=== PATIENT | female | born 1970 | race African-American/Black ===

== ENCOUNTER 2018-01-20 05:08 | Inpatient (IN) | payer OTHER ==
[2018-01-12 14:34] VITALS: BMI 24.4
[2018-01-20] MEDS ORDERED: VASOPRESSIN 20 UNITS/ML VIAL IV ONE (07:34)
[2018-01-20] MEDS ORDERED: ROPIVACAINE HCL 0.5% 30ML VIAL ONE (07:36)
[2018-01-20] MEDS ORDERED: DEXAMETHASONE SOD PHOSPHATE/PF 10 MG/ML SDV ONE (07:36)
[2018-01-20] MEDS ORDERED: MIDAZOLAM HCL 2 MG/2 ML SINGLE DOSE VIAL ONE ×2 (07:37)
--- NOTE | 2018-01-20 07:43 | HP ---
History & Physical Update - History History: No Change - Physical Physical: No Change - Assessment Assessment: No Change - Plan Plan: No Change (No change in HP from 01/12/18)
--- NOTE | 2018-01-20 07:51 | OP ---
Operative Note - Note: Operative Date: 01/20/18 Pre-Operative Diagnosis: Leiomyomatous uterus. menorrhagia. submucosal myoma. intramural myoma Operation: Abdominal myomectomy Post-Operative Diagnosis: Same as Pre-op Surgeon: Randa Rodriguez Chicken Catcher: Pascual Meyer Anesthesia: General Estimated Blood Loss (mls): 200 Operative Report Dictated: Yes
[2018-01-20] MEDS ORDERED: LIDOCAINE HCL/PF 2% SDV 5ML VIAL ONE (07:54)
[2018-01-20] MEDS ORDERED: ceFAZolin SODIUM 1 GM VIAL ONE (07:54)
[2018-01-20] MEDS ORDERED: DEXAMETHASONE SOD PHOSPHATE 4 MG/1 ML VIAL ONE (07:54)
[2018-01-20] MEDS ORDERED: PROPOFOL 20 ML ONE (07:55)
[2018-01-20] MEDS ORDERED: ROCURONIUM BROMIDE 50 MG/5 ML VIAL ONE (07:56)
[2018-01-20] MEDS ORDERED: ceFAZolin SODIUM 1 GM VIAL IVPB ONE (08:01)
[2018-01-20] MEDS ORDERED: PROMETHAZINE HCL 25 MG/1 ML VIAL IVPB PRN (08:47)
[2018-01-20] MEDS ORDERED: DEXAMETHASONE SOD PHOSPHATE 4 MG/1 ML VIAL IVPUSH PRN (08:47)
[2018-01-20] MEDS ORDERED: NEOSTIGMINE METHYLSULFATE 0.5 MG/ML - 10 ML MDV ONE (08:50)
[2018-01-20] MEDS ORDERED: GLYCOPYRROLATE 0.2 MG/1 ML VIAL ONE (08:51)
[2018-01-20] MEDS ORDERED: HYDROmorphone *PCA* 10MG/50ML DISP.SYRIN PCA ONE (10:16)
[2018-01-20] MEDS: HYDROmorphone *PCA* 10MG/50ML DISP.SYRIN PCA SCH ×2 (10:30→13:25)
[2018-01-20] MEDS ORDERED: PROMETHAZINE HCL 25 MG/1 ML VIAL ONE (11:28)
[2018-01-20] MEDS: LACTATED RINGERS SOLUTION 1,000 ML/1,000 ML INFUS.BAG IV SCH ×2 (13:25→20:35)
[2018-01-20 18:37] LABS: HEMATOCRIT 28.2 % (32.4-45.2); HEMOGLOBIN 8.9 GM/dL (10.7-15.3); LYMPH % 1.4 % (8-40); MCH 27.2 pg (25.7-33.7); MCHC 31.7 g/dl (32.0-36.0); MEAN CELL VOLUME 85.9 fl (80-96); MEAN PLT VOLUME 9.2 fl (7.5-11.1); MONO % 4.8 % (3.8-10.2); NEUT % 93.8 % (42.8-82.8); PLATELET COUNT 213 K/MM3 (134-434); RBC 3.28 M/mm3 (3.60-5.2); RDW 13.4 % (11.6-15.6); WHITE BLOOD COUNT 13.7 K/mm3 (4.0-10.0)
[2018-01-21 08:06] LABS: BASO % 0.1 % (0-2.0); EOS % 0.1 % (0-4.5); HEMATOCRIT 23.4 % (32.4-45.2); HEMOGLOBIN 7.8 GM/dL (10.7-15.3); LYMPH % 7.4 % (8-40); MCH 28.3 pg (25.7-33.7); MCHC 33.2 g/dl (32.0-36.0); MEAN CELL VOLUME 85.3 fl (80-96); MEAN PLT VOLUME 8.9 fl (7.5-11.1); MONO % 7.9 % (3.8-10.2); NEUT % 84.5 % (42.8-82.8); PLATELET COUNT 171 K/MM3 (134-434); RBC 2.74 M/mm3 (3.60-5.2); RDW 12.9 % (11.6-15.6); WHITE BLOOD COUNT 11.3 K/mm3 (4.0-10.0)
[2018-01-21] MEDS: LACTATED RINGERS SOLUTION 1,000 ML/1,000 ML INFUS.BAG IV SCH ×2 (08:07→13:41)
--- NOTE | 2018-01-21 08:40 | PN ---
Progress Note (short form) - Note Progress Note: Anesthesia postop note and pain management follow up 47 y/o F s/p GA for abdominal myomectomy, dilaudid tariff supervisor for postop pain management. POD#1, vss, aaox3, pain well controlled with tariff supervisor., no complaints. Will d/c tariff supervisor later today when patient able to tolerate po meds. No anesthesia complications.
[2018-01-21] MEDS: ENOXAPARIN NA (PORCINE) 40 MG/0.4 ML DISP.SYRIN SQ SCH (10:05)
[2018-01-21] MEDS: HYDROmorphone *PCA* 10MG/50ML DISP.SYRIN PCA SCH (10:05)
[2018-01-21] MEDS: oxyCODONE HCL 5 MG TABLET PO PRN ×3 (11:08→20:28)
--- NOTE | 2018-01-21 15:48 | PN ---
Progress Note (SOAP) - Subjective Chief Complaint: Pt with mild pain doing well no flatus no dizziness - Current Medications Current Medications: Active Medications Acetaminophen (Tylenol -) 650 mg PO Q4H PRN PRN Reason: FEVER Bisacodyl (Dulcolax Suppository -) 10 mg [place] DAILY PRN PRN Reason: CONSTIPATION Dexamethasone Sodium Phosphate (Decadron Injection -) 4 mg IVPUSH ONCE PRN PRN Reason: NAUSEA AND/OR VOMITING Diphenhydramine HCl (Benadryl Injection -) 12.5 mg IVPUSH ONCE PRN PRN Reason: FOR ITCHING Enoxaparin Sodium (Lovenox -) 40 mg SQ DAILY [facility] Last Admin: 01/21/18 10:05 Dose: 40 mg Fentanyl (Sublimaze Injection -) 50 mcg IVPUSH [id number] PRN PRN Reason: PAIN-PACU ORDER X 4 DOSES ONLY Last Admin: 01/20/18 10:45 Dose: 50 mcg Hydromorphone HCl (Dilaudid Outside Medical Sales Representative -) 10 mg CROP ADJUSTER CROP ADJUSTER [facility] PRN Reason: Protocol Stop: 01/27/18 08:47 Last Admin: 01/21/18 10:05 Dose: Not Given Lactated Ringer's (Lactated Ringers Solution) 1,000 ml in 1,000 mls @ 125 mls/ hr IV ASDIR [facility] Last Admin: 01/21/18 13:41 Dose: 125 mls/hr Ondansetron HCl (Zofran Injection) 4 mg IVPUSH Q4H PRN PRN Reason: NAUSEA AND/OR VOMITING Oxycodone HCl (Roxicodone -) 5 mg PO Q4H PRN PRN Reason: PAIN LEVEL 4 - 6 Last Admin: 01/21/18 11:08 Dose: 5 mg Oxycodone HCl (Roxicodone -) 10 mg PO Q4H PRN PRN Reason: PAIN LEVEL 7 - 10 Last Admin: 01/21/18 14:52 Dose: 10 mg Promethazine HCl (Phenergan Injection -) 12.5 mg IVPB Q6H PRN PRN Reason: NAUSEA AND/OR VOMITING Last Admin: 01/20/18 11:30 Dose: 6.25 mg Simethicone (Mylicon -) 80 mg PO Q4H PRN PRN Reason: GAS - Objective Vital Signs: Vital Signs Temperature 99.3 F 05/18/18 14:53 Pulse Rate 85 01/21/18 14:53 Respiratory Rate 18 01/21/18 14:53 Blood Pressure 137/75 01/21/18 14:53 O2 Sat by Pulse Oximetry (%) 100 01/21/18 09:00 Constitutional: Yes: Well Nourished, No Distress Neck: Yes: WNL Gastrointestinal: Yes: WNL, Soft ....Post : Yes: Uterus firm, Uterus non-tender Extremities: Yes: WNL Edema: No Wound/Incision: Yes: Clean/Dry, Well Approximated Neurological: Yes: WNL, Alert, Oriented Labs Lab Results: CBC, BMP 01/21/18 07:35 Problem List - Problems (1) H/O myomectomy Code(s): Z98.890 - OTHER SPECIFIED POSTPROCEDURAL STATES Assessment/Plan POD 1 stable anemia Plan DC home in am if passing flatus rto 1 week Ferrous sulfate BID
[2018-01-22] MEDS: LACTATED RINGERS SOLUTION 1,000 ML/1,000 ML INFUS.BAG IV SCH ×5 (01:19→21:51)
[2018-01-22] MEDS: oxyCODONE HCL 5 MG TABLET PO PRN ×3 (08:54→19:56)
[2018-01-22] MEDS: FERROUS SO4 325 MG TABLET (FP) PO SCH ×3 (08:55→21:50)
[2018-01-22] MEDS: ENOXAPARIN NA (PORCINE) 40 MG/0.4 ML DISP.SYRIN SQ SCH (09:00)
--- NOTE | 2018-01-22 10:16 | DS ---
Physical Exam-MAINTENANCE WORKER Vital Signs: Vital Signs Temperature 98.7 F 01/22/18 05:00 Pulse Rate 96 H 01/22/18 05:00 Respiratory Rate 20 01/22/18 05:00 Blood Pressure 107/61 01/22/18 05:00 O2 Sat by Pulse Oximetry (%) 100 01/21/18 20:36 Constitutional: Yes: Well Nourished, No Distress Neck: Yes: WNL Gastrointestinal: Yes: WNL, Soft Labs: CBC, BMP 01/21/18 07:35 Discharge Summary Reason For Visit: LEIOMYOMATOSIS UTERUS Current Active Problems H/O myomectomy (Acute) Procedures: Principal: Abdominal myomectomy Condition: Good - Instructions Diet, Activity, Other Instructions: Dr. Randa Rodriguez Cutting Machine Operator Helper discharge instructions Physical activity Resume your normal everyday activity as tolerated no heavy lifting or exercise until seen by your surgeon. You may walk unlimited j carlos of and climb stairs. You may resume driving the car when you feel safe and comfortable behind the wheel. No sexual activity as instructed by Dr. Rodriguez. Wound care If you have a bandage, leave it on, and keep dry for 48-72 hours. After that time discard the outer bandage. If they are tapes on the skin under the out of bandage leave them in place. They will peel off in the next 7 to 10 days. Do Not Peel them off. You may shower the day after surgery. If there are tapes present on the skin, you may shower over them. Diet There are no dietary restrictions. Eat healthy, high-fiber foods. Drink 6 to 8 glasses of liquid each day. This will assist in keeping your bowels are regular. Pain management You may take Tylenol or acetaminophen or Ibuprofen (for example, Motrin, Advil etc.) from my pain prescription medication is ordered should be taken as prescribed for moderate to severe pain. Call Dr. Rodriguez for any of the following: Severe pain not relieved by medication Fever of 101 or higher Excessive bleeding or drainage on dressing Inability to urinate Call the office at [phone] for an appointment in seven days. Disposition: HOME - Home Medications Comprehensive Discharge Medication List: Ambulatory Orders Iron 25 mg PO BID 01/12/18 Pamprin 1 tab PRN PRN 01/20/18 Oxycodone HCl/Acetaminophen [Percocet 5-325 mg Tablet] 1 - 2 tab PO Q4H #20 tablet MDD 6 01/22/18
[2018-01-22] MEDS: ACETAMINOPHEN 325 MG TABLET (FP) PO PRN (20:04)
--- NOTE | 2018-01-22 22:00 | PN ---
Progress Note (SOAP) - Subjective Chief Complaint: Pt with gas pain no flatus unable to go home - Current Medications Current Medications: Active Medications Acetaminophen (Tylenol -) 650 mg PO Q4H PRN PRN Reason: FEVER Last Admin: 01/22/18 20:04 Dose: 650 mg Bisacodyl (Dulcolax Suppository -) 10 mg [place] DAILY PRN PRN Reason: CONSTIPATION Dexamethasone Sodium Phosphate (Decadron Injection -) 4 mg IVPUSH ONCE PRN PRN Reason: NAUSEA AND/OR VOMITING Diphenhydramine HCl (Benadryl Injection -) 12.5 mg IVPUSH ONCE PRN PRN Reason: FOR ITCHING Docusate Sodium (Colace -) 100 mg PO BID PRN PRN Reason: CONSTIPATION Enoxaparin Sodium (Lovenox -) 40 mg SQ DAILY [facility] Last Admin: 01/22/18 09:00 Dose: 40 mg Fentanyl (Sublimaze Injection -) 50 mcg IVPUSH [id number] PRN PRN Reason: PAIN-PACU ORDER X 4 DOSES ONLY Last Admin: 01/20/18 10:45 Dose: 50 mcg Ferrous Sulfate (Feosol -) 325 mg PO BID [facility] Last Admin: 01/22/18 21:50 Dose: 325 mg Lactated Ringer's (Lactated Ringers Solution) 1,000 ml in 1,000 mls @ 125 mls/ hr IV ASDIR [facility] Last Admin: 01/22/18 21:51 Dose: 125 mls/hr Ondansetron HCl (Zofran Injection) 4 mg IVPUSH Q4H PRN PRN Reason: NAUSEA AND/OR VOMITING Oxycodone HCl (Roxicodone -) 5 mg PO Q4H PRN PRN Reason: PAIN LEVEL 4 - 6 Last Admin: 01/22/18 19:56 Dose: 5 mg Oxycodone HCl (Roxicodone -) 10 mg PO Q4H PRN PRN Reason: PAIN LEVEL 7 - 10 Last Admin: 01/22/18 15:53 Dose: 10 mg Promethazine HCl (Phenergan Injection -) 12.5 mg IVPB Q6H PRN PRN Reason: NAUSEA AND/OR VOMITING Last Admin: 01/20/18 11:30 Dose: 6.25 mg Simethicone (Mylicon -) 80 mg PO Q4H PRN PRN Reason: GAS - Objective Vital Signs: Vital Signs Temperature 98.9 F 01/22/18 14:15 Pulse Rate 89 01/22/18 14:15 Respiratory Rate 18 01/22/18 14:15 Blood Pressure 130/75 01/22/18 14:15 O2 Sat by Pulse Oximetry (%) 100 01/22/18 09:00 Constitutional: Yes: Well Nourished, No Distress Cardiovascular: Yes: WNL Respiratory: Yes: WNL Gastrointestinal: Yes: WNL, Soft, Distention Musculoskeletal: Yes: WNL Extremities: Yes: WNL Wound/Incision: Yes: Steri Strips, Open to air Neurological: Yes: WNL, Alert, Oriented Labs Lab Results: CBC, BMP 01/21/18 07:35 Problem List - Problems (1) H/O myomectomy Code(s): Z98.890 - OTHER SPECIFIED POSTPROCEDURAL STATES Assessment/Plan POD 2 no flatus stable anemia Plan DC home in am if passing flatus in am rto 1 week Ferrous sulfate BID
[2018-01-22 22:46] LABS: BASO % 0.1 % (0-2.0); EOS % 0.2 % (0-4.5); LYMPH % 5.1 % (8-40); MCH 27.6 pg (25.7-33.7); MCHC 32.3 g/dl (32.0-36.0); MEAN CELL VOLUME 85.3 fl (80-96); MEAN PLT VOLUME 9.1 fl (7.5-11.1); MONO % 4.6 % (3.8-10.2); PLATELET COUNT 200 K/MM3 (134-434); RBC 2.39 M/mm3 (3.60-5.2); RDW 12.9 % (11.6-15.6); WHITE BLOOD COUNT 11.8 K/mm3 (4.0-10.0)
[2018-01-22 22:49] LABS: HEMATOCRIT 20.4 % (32.4-45.2); HEMOGLOBIN 6.6 GM/dL (10.7-15.3)
--- NOTE | 2018-01-22 23:07 | PN ---
Progress Note (short form) - Note Progress Note: CBC WBC 11.8 K/mm3 (4.0-10.0) H 01/22/18 22:30 RBC 2.39 M/mm3 (3.60-5.2) L 01/22/18 22:30 Hgb 6.6 GM/dL (10.7-15.3) L* D 01/22/18 22:30 Hct 20.4 % (32.4-45.2) L 01/22/18 22:30 MCV 85.3 fl (80-96) 01/22/18 22:30 MCH 27.6 pg (25.7-33.7) 01/22/18 22:30 MCHC 32.3 g/dl (32.0-36.0) 01/22/18 22:30 RDW 12.9 % (11.6-15.6) 01/22/18 22:30 Plt Count 200 K/MM3 (134-434) 01/22/18 22:30 MPV 9.1 fl (7.5-11.1) 01/22/18 22:30 Neutrophils % 90.0 % (42.8-82.8) H 01/22/18 22:30 Lymphocytes % 5.1 % (8-40) L D 01/22/18 22:30 Monocytes % 4.6 % (3.8-10.2) 01/22/18 22:30 Eosinophils % 0.2 % (0-4.5) D 01/22/18 22:30 Basophils % 0.1 % (0-2.0) 01/22/18 22:30 Called by nurse to inform of H/H VSS low grade temp will start iv ancef cbc in am Ferrous sulfate BID Consider transfusion if vitals not stable or if goes lower and is afebrile Problem List - Problems (1) H/O myomectomy Code(s): Z98.890 - OTHER SPECIFIED POSTPROCEDURAL STATES
[2018-01-23] MEDS: ONDANSETRON 4 MG/2 ML VIAL IVPUSH PRN ×2 (00:23→21:45)
[2018-01-23] MEDS: oxyCODONE HCL 5 MG TABLET PO PRN ×3 (00:36→21:53)
[2018-01-23] MEDS ORDERED: ceFAZolin SODIUM 1 GM VIAL ONE ×3 (00:57→17:12)
[2018-01-23] MEDS ORDERED: DEXTROSE 5%-WATER - 50 ML IVPB ONE ×3 (00:58→17:13)
[2018-01-23] MEDS: CEFAZOLIN 1 GM in DEXTROSE 5%-WATER - 50 ML IVPB SCH ×3 (01:20→17:15)
[2018-01-23 08:52] LABS: BASO % 0.2 % (0-2.0); EOS % 1.6 % (0-4.5); HEMATOCRIT 19.8 % (32.4-45.2); LYMPH % 7.3 % (8-40); MCH 27.6 pg (25.7-33.7); MCHC 32.5 g/dl (32.0-36.0); MEAN CELL VOLUME 85.2 fl (80-96); MEAN PLT VOLUME 9.7 fl (7.5-11.1); MONO % 7.7 % (3.8-10.2); NEUT % 83.2 % (42.8-82.8); PLATELET COUNT 224 K/MM3 (134-434); RBC 2.32 M/mm3 (3.60-5.2); WHITE BLOOD COUNT 9.6 K/mm3 (4.0-10.0)
[2018-01-23 09:00] LABS: HEMOGLOBIN 6.4 GM/dL (10.7-15.3)
--- NOTE | 2018-01-23 10:05 | PN ---
Progress Note (SOAP) - Subjective Chief Complaint: Pt not passing gas no flatus SOB HCT 19% - Current Medications Current Medications: Active Medications Acetaminophen (Tylenol -) 650 mg PO Q4H PRN PRN Reason: FEVER Last Admin: 01/22/18 20:04 Dose: 650 mg Bisacodyl (Dulcolax Suppository -) 10 mg [place] DAILY PRN PRN Reason: CONSTIPATION Dexamethasone Sodium Phosphate (Decadron Injection -) 4 mg IVPUSH ONCE PRN PRN Reason: NAUSEA AND/OR VOMITING Diphenhydramine HCl (Benadryl Injection -) 12.5 mg IVPUSH ONCE PRN PRN Reason: FOR ITCHING Docusate Sodium (Colace -) 100 mg PO BID PRN PRN Reason: CONSTIPATION Enoxaparin Sodium (Lovenox -) 40 mg SQ DAILY [facility] Last Admin: 01/22/18 09:00 Dose: 40 mg Fentanyl (Sublimaze Injection -) 50 mcg IVPUSH [id number] PRN PRN Reason: PAIN-PACU ORDER X 4 DOSES ONLY Last Admin: 01/20/18 10:45 Dose: 50 mcg Ferrous Sulfate (Feosol -) 325 mg PO BID [facility] Last Admin: 01/22/18 21:50 Dose: 325 mg Lactated Ringer's (Lactated Ringers Solution) 1,000 ml in 1,000 mls @ 125 mls/ hr IV ASDIR [facility] Last Admin: 01/22/18 21:51 Dose: 125 mls/hr Cefazolin Sodium 1 gm/ (Dextrose) 50 mls @ 100 mls/hr IVPB Q8H-IV TANIKA Stop: 01/24/18 01:59 Last Admin: 01/23/18 01:20 Dose: 100 mls/hr Ondansetron HCl (Zofran Injection) 4 mg IVPUSH Q4H PRN PRN Reason: NAUSEA AND/OR VOMITING Last Admin: 01/23/18 00:23 Dose: 4 mg Oxycodone HCl (Roxicodone -) 5 mg PO Q4H PRN PRN Reason: PAIN LEVEL 4 - 6 Last Admin: 01/22/18 19:56 Dose: 5 mg Oxycodone HCl (Roxicodone -) 10 mg PO Q4H PRN PRN Reason: PAIN LEVEL 7 - 10 Last Admin: 01/23/18 00:36 Dose: 10 mg Promethazine HCl (Phenergan Injection -) 12.5 mg IVPB Q6H PRN PRN Reason: NAUSEA AND/OR VOMITING Last Admin: 01/20/18 11:30 Dose: 6.25 mg Simethicone (Mylicon -) 80 mg PO Q4H PRN PRN Reason: GAS - Objective Vital Signs: Vital Signs Temperature 98.6 F 01/23/18 06:00 Pulse Rate 82 01/23/18 06:00 Respiratory Rate 18 01/23/18 06:00 Blood Pressure 122/69 01/23/18 06:00 O2 Sat by Pulse Oximetry (%) 97 01/22/18 21:00 Gastrointestinal: Yes: WNL, Soft, Distention Musculoskeletal: Yes: WNL Extremities: Yes: WNL Wound/Incision: Yes: Clean/Dry, Steri Strips, Open to air Neurological: Yes: WNL, Alert, Oriented Labs Lab Results: CBC, BMP 01/23/18 07:30 Problem List - Problems (1) H/O myomectomy Code(s): Z98.890 - OTHER SPECIFIED POSTPROCEDURAL STATES Assessment/Plan POD 3 no flatus dyspnea anemia Plan Transfusion x 2 units CBC
[2018-01-23] MEDS: LACTATED RINGERS SOLUTION 1,000 ML/1,000 ML INFUS.BAG IV SCH ×2 (10:09→21:46)
[2018-01-23] MEDS: ENOXAPARIN NA (PORCINE) 40 MG/0.4 ML DISP.SYRIN SQ SCH (10:10)
[2018-01-23] MEDS: FERROUS SO4 325 MG TABLET (FP) PO SCH ×2 (10:10→21:45)
[2018-01-23] MEDS: BISACODYL 10 MG SUPP.RECT PR PRN (10:10)
[2018-01-23] MEDS: DOCUSATE SODIUM 100 MG CAPSULE (FP) PO PRN ×2 (10:10→21:45)
[2018-01-24] MEDS: oxyCODONE HCL 5 MG TABLET PO PRN (05:45)
[2018-01-24 09:01] LABS: BASO % 0.3 % (0-2.0); HEMATOCRIT 27.7 % (32.4-45.2); HEMOGLOBIN 9.4 GM/dL (10.7-15.3); LYMPH % 7.3 % (8-40); MCH 29.1 pg (25.7-33.7); MEAN CELL VOLUME 85.6 fl (80-96); MEAN PLT VOLUME 8.6 fl (7.5-11.1); MONO % 8.2 % (3.8-10.2); NEUT % 82.2 % (42.8-82.8); PLATELET COUNT 235 K/MM3 (134-434); RBC 3.23 M/mm3 (3.60-5.2); RDW 13.3 % (11.6-15.6); WHITE BLOOD COUNT 8.8 K/mm3 (4.0-10.0)
[2018-01-24] MEDS: FERROUS SO4 325 MG TABLET (FP) PO SCH ×2 (09:38→22:25)
[2018-01-24] MEDS: ENOXAPARIN NA (PORCINE) 40 MG/0.4 ML DISP.SYRIN SQ SCH (09:38)
[2018-01-24] MEDS: ONDANSETRON 4 MG/2 ML VIAL IVPUSH PRN (09:39)
[2018-01-24] MEDS: SIMETHICONE 80 MG TAB.CHEW (FP) PO PRN ×2 (09:51→20:14)
[2018-01-24] MEDS: ACETAMINOPHEN 325 MG TABLET (FP) PO PRN ×2 (09:51→20:09)
[2018-01-24] MEDS: LACTATED RINGERS SOLUTION 1,000 ML/1,000 ML INFUS.BAG IV SCH ×2 (11:14→15:46)
--- NOTE | 2018-01-24 12:40 | PATH ---
Surgical Pathology Report Patient Name: DEISY VELA Med. Rec. #: [id number] /Age/Gender: 1970 (Age: 47) / F Account: [id number] Location: [facility] MED/SURG Taken: 01/20/2018 Received: 01/20/2018 Reported: 01/24/2018 Physicians: Randa Rodriguez M.D. Specimen(s) Received FIBROID OF UTERUS Clinical History Leiomyomatous uterus Final Diagnosis UTERUS, FIBROIDS, EXCISION: LEIOMYOMA, MULTIPLE. Electronically Signed Elvis Caceres M.D. Gross Description Received in formalin labeled "fibroids of uterus," is a 349 g aggregate of 22 rubbery nodules, consistent with fibroids. The fibroids range from 1.3-7.5 cm in greatest dimension. Sectioning reveals homogeneous hooks, smooth parenchyma with whorled architecture. No areas of hemorrhage or necrosis are identified. Medication Assistant sections are submitted in 8 cassettes. /01/20/2018 saudi/01/20/2018
[2018-01-24] MEDS: DOCUSATE SODIUM 100 MG CAPSULE (FP) PO PRN (22:30)
[2018-01-24] MEDS ORDERED: oxyCODONE HCL 5 MG TABLET PO PRN (22:40)
[2018-01-25] MEDS: LACTATED RINGERS SOLUTION 1,000 ML/1,000 ML INFUS.BAG IV SCH ×2 (00:36→09:39)
--- NOTE | 2018-01-25 01:01 | PN ---
Progress Note (SOAP) - Subjective Chief Complaint: Pt was passing gas small amout of gas but with abd pain Pt was seen this morn - Current Medications Current Medications: Active Medications Acetaminophen (Tylenol -) 650 mg PO Q4H PRN PRN Reason: FEVER Last Admin: 01/24/18 20:09 Dose: 650 mg Bisacodyl (Dulcolax Suppository -) 10 mg [place] DAILY PRN PRN Reason: CONSTIPATION Last Admin: 01/23/18 10:10 Dose: 10 mg Dexamethasone Sodium Phosphate (Decadron Injection -) 4 mg IVPUSH ONCE PRN PRN Reason: NAUSEA AND/OR VOMITING Diphenhydramine HCl (Benadryl Injection -) 12.5 mg IVPUSH ONCE PRN PRN Reason: FOR ITCHING Docusate Sodium (Colace -) 100 mg PO BID PRN PRN Reason: CONSTIPATION Last Admin: 01/24/18 22:30 Dose: 100 mg Enoxaparin Sodium (Lovenox -) 40 mg SQ DAILY [facility] Last Admin: 01/24/18 09:38 Dose: 40 mg Fentanyl (Sublimaze Injection -) 50 mcg IVPUSH [id number] PRN PRN Reason: PAIN-PACU ORDER X 4 DOSES ONLY Last Admin: 01/20/18 10:45 Dose: 50 mcg Ferrous Sulfate (Feosol -) 325 mg PO BID [facility] Last Admin: 01/24/18 22:25 Dose: 325 mg Lactated Ringer's (Lactated Ringers Solution) 1,000 ml in 1,000 mls @ 125 mls/ hr IV ASDIR [facility] Last Admin: 01/25/18 00:36 Dose: 125 mls/hr Ondansetron HCl (Zofran Injection) 4 mg IVPUSH Q4H PRN PRN Reason: NAUSEA AND/OR VOMITING Last Admin: 01/24/18 09:39 Dose: 4 mg Oxycodone HCl (Roxicodone -) 10 mg PO Q6H PRN PRN Reason: PAIN LEVEL 6-10 Last Admin: 01/24/18 23:00 Dose: 10 mg Promethazine HCl (Phenergan Injection -) 12.5 mg IVPB Q6H PRN PRN Reason: NAUSEA AND/OR VOMITING Last Admin: 01/20/18 11:30 Dose: 6.25 mg Simethicone (Mylicon -) 80 mg PO Q4H PRN PRN Reason: GAS Last Admin: 01/24/18 20:14 Dose: 80 mg - Objective Vital Signs: Vital Signs Temperature 98.9 F 01/24/18 20:00 Pulse Rate 62 01/24/18 20:00 Respiratory Rate 20 01/24/18 21:00 Blood Pressure 145/76 01/24/18 20:00 O2 Sat by Pulse Oximetry (%) 100 01/24/18 21:00 Constitutional: Yes: Well Nourished, No Distress Gastrointestinal: Yes: WNL, Soft, Distention, Tenderness Musculoskeletal: Yes: WNL Extremities: Yes: WNL Edema: No Wound/Incision: Yes: Clean/Dry, Well Approximated, Steri Strips Labs Lab Results: CBC, BMP 01/24/18 08:35 Problem List - Problems (1) H/O myomectomy Code(s): Z98.890 - OTHER SPECIFIED POSTPROCEDURAL STATES Assessment/Plan POD 4 small flatus dyspnea sp transfusion x 2 units Still on abs Plan ducolax supps CBC in am
[2018-01-25 08:13] LABS: BASO % 0.1 % (0-2.0); EOS % 3.5 % (0-4.5); HEMATOCRIT 28.1 % (32.4-45.2); HEMOGLOBIN 9.4 GM/dL (10.7-15.3); LYMPH % 7.5 % (8-40); MCH 28.5 pg (25.7-33.7); MCHC 33.3 g/dl (32.0-36.0); MEAN CELL VOLUME 85.6 fl (80-96); MEAN PLT VOLUME 8.6 fl (7.5-11.1); MONO % 8.7 % (3.8-10.2); NEUT % 80.2 % (42.8-82.8); PLATELET COUNT 262 K/MM3 (134-434); RBC 3.29 M/mm3 (3.60-5.2); RDW 13.6 % (11.6-15.6); WHITE BLOOD COUNT 8.7 K/mm3 (4.0-10.0)
[2018-01-25 08:43] LABS: CHLORIDE 106 mmol/L (98-107); POTASSIUM 3.8 mmol/L (3.5-5.1); SODIUM 140 mmol/L (136-145)
[2018-01-25] MEDS: ACETAMINOPHEN 325 MG TABLET (FP) PO PRN (09:38)
[2018-01-25] MEDS: ENOXAPARIN NA (PORCINE) 40 MG/0.4 ML DISP.SYRIN SQ SCH (09:38)
[2018-01-25] MEDS: FERROUS SO4 325 MG TABLET (FP) PO SCH (09:38)
[2018-01-25] MEDS: SIMETHICONE 80 MG TAB.CHEW (FP) PO PRN (09:38)
[2018-01-25] MEDS: BISACODYL 10 MG SUPP.RECT PR PRN (09:39)
[2018-01-25 09:51] LABS: ANION GAP 10 (8-16); BLOOD UREA NITROGEN 7 mg/dL (7-18); CALCIUM 7.7 mg/dL (8.5-10.1); CO2 24 mmol/L (21-32); CREATININE 0.4 mg/dL (0.55-1.02); GLUCOSE,RANDOM 75 mg/dL (74-106)
[2018-01-25 11:13] VITALS: BP 126/78; PULSE 67; TEMP 99
== END 2018-01-25 14:28 | disposition home or self-care (01) | DRG 519 ==
LOC: JSAMEDAYSX 05:08 → J8W 12:15
PROVIDERS: ADMIT Obstetrics & Gynecology; ATTEND Obstetrics & Gynecology
PROC: 0UB90ZZ Excision of Uterus, Open Approach (ICD-10-PCS; principal; 2018-01-20 07:30)
DX: D25.0 Submucous leiomyoma of uterus (principal); D25.1 Intramural leiomyoma of uterus; D64.2 Secondary sideroblastic anemia due to drugs and toxins
CPT/HCPCS: 36415; 36430; 80048; 84703; 85025; 86850; 86900; 86901; 86922; 88305-TC; 94760; P9038; P9058